=== PATIENT | female | born 1995 | race Hispanic/Latino ===

== ENCOUNTER 2018-03-03 13:38 | Outpatient (CLI) | payer OTHER | END 2018-03-03 13:39 | disposition home or self-care (01) | LOC: BICULT 13:38 | PROVIDERS: ATTEND Family Medicine | DX: R31.9 Hematuria, unspecified (principal) | CPT/HCPCS: 76770 ==

== ENCOUNTER 2019-01-28 11:47 | Emergency (ER) | payer OTHER ==
[2019-01-28 12:24] LABS: Bilirubin Negative (Negative); Blood, Urine Small (Negative); Clarity CLEAR (Clear); Glucose, Urine (Dipstick) Negative (Negative); Leukocyte Negative (Negative); Nitrite Negative (Negative); Protein, Urine (Dipstick) Trace mg/dL (Neg-Trace); Specific Gravity, Urine 1.028 (1.002-1.036); Urobilinogen 0.2 mg/dL (0.2-1.0)
[2019-01-28 12:26] LABS: Bacteria/HPF None Seen HPF (None Seen); Hyaline Casts/LPF 4-6 HYALINE CAST LPF (0-3 Hyaline); Pathc Cast-AUWi Flag 1.76 (0-2.49); Pregnancy Test - Urine (BHCG) POSITIVE (Negative); Pregu Control Background? CLEAR/WHITE (CLR/WHITE); Pregu Control Bar Appear? YES (CONTROL BAR); Specific Gravity 1.028 (1.002-1.036); Squamous Epithelial 0-3 HPF (0-3); WBC/HPF 0-3 HPF (0-3)
[2019-01-28 12:35] LABS: #Basophils 0.1 thou/uL (0.0-0.2); #Eosinphils 0.2 thou/uL (0.0-0.7); #Lymphocytes 1.7 thou/uL (1.20-3.40); #Monocytes 0.9 thou/uL (0.11-0.59); #Neutrophils 7.1 thou/uL (1.40-6.50); %Basophils 0.7 % (0.0-1.0); %Eosinophils 1.6 % (0.0-10.0); %Monocytes 9.3 % (0.0-10.0); %Neutrophils 71.5 % (42.0-75.0); Hemoglobin 12.8 g/dL (12.0-16.0); Mean Corpuscular HGB CONC 32.1 g/dL (32.0-36.0); Mean Corpuscular Hemoglobin 28.3 pg (27.0-31.0); Mean Corpuscular Volume 88.4 fL (78.0-98.0); Mean Platelet Volume 9.4 fL (7.4-10.4); Platelet Count 194 thou/uL (130-400); Red Blood Cell (RBC) Count 4.52 mill/uL (4.20-5.40)
[2019-01-28 12:56] LABS: ALT (SGPT) 10 U/L (8-55); AST (SGOT) 14 U/L (5-34); Albumin 3.9 g/dL (3.5-5.0); Alkaline Phosphatase 68 U/L (40-150); Anion Gap 12 mmol/L (10-20); BUN (Urea Nitrogen) 5 mg/dL (7.0-18.7); Bilirubin, Total 0.2 mg/dL (0.2-1.2); Calc. Creatinine Clearance 0 mL/min (70-130); Calcium 9.5 mg/dL (7.8-10.44); Carbon Dioxide 26 mmol/L (22-29); Chloride 103 mmol/L (98-107); Estimated GFR-MDRD Greater than 90; Globulin 2.8 g/dL (2.4-3.5); Glucose 85 mg/dL (70-105); Lipase 40 U/L (8-78); Potassium 4.7 mmol/L (3.5-5.1); Protein, Total 6.7 g/dL (6.0-8.3); Sodium 136 mmol/L (136-145)
--- NOTE | 2019-01-28 13:50 | ULT ---
PELVIC ULTRASOUND: HISTORY: female with abdominal pain. TECHNIQUE: Multiplanar, anderson scale, and color Doppler images were obtained in a transabdominal and transvaginal pelvic ultrasound. Spectral analysis of the Doppler waveforms of the ovaries was performed. FINDINGS: There is a gestation sac within the uterus. This contains a pole and a yolk sac. [place]-rump l ength of the pole is 1.96 cm which estimates gestational age of 8 weeks 4 days. A heart rate is detected at 152 b.p.m. No free fluid is seen in the pelvis. The right ovary was seen and demonstrates normal internal flow. The left ovary cannot be visualized. IMPRESSION: Single live intrauterine with estimated age of 8 weeks 4 days. POS: [facility]
[2019-01-30 19:02] LABS: Chlamydia by PCR Not Detected (NotDetected); GC by PCR Not Detected (NotDetected)
== END 2019-01-28 15:23 | disposition home or self-care (01) ==
LOC: ERS 11:47
DX: O99.89 Other specified diseases and conditions complicating pregnancy, childbirth and the puerperium (principal); R10.84 Generalized abdominal pain; Z3A.08 8 weeks gestation of pregnancy
CPT/HCPCS: 36415; 76856; 80053; 81003; 81015; 81025; 83690; 84702; 85025; 87480; 87491; 87510; 87591; 87660

== ENCOUNTER 2020-11-26 13:08 | Outpatient (CLI) | payer OTHER ==
--- NOTE | 2020-11-26 13:43 | ULT ---
Neck ultrasound: 11/26/2020 HISTORY: Palpable abnormality within the right aspect of the neck TECHNIQUE: Multiplanar grayscale sonographic imaging of the neck obtained in the area of probable con cern. FINDINGS: The area of palpable concern within the right aspect of the neck corresponds to a right thy roid lesion and thus, the entirety of the thyroid gland was imaged. The thyroid isthmus is within normal limits, measuring 4 mm in AP dimension. The right lobe of the thyroid gland measures 2.6 x 5.7 x 2.2 cm and contains a solid dominant nodule measuring approximately 2.3 x 4.5 x 2.5 cm. The solid nodule is isoechoic and demonstrates no internal calcification. No left thyroid nodule is seen. The left lobe measures 1.6 x 5.0 x 1.8 cm. IMPRESSION:TI-RADS category 3-mildly suspicious. Given size of the thyroid nodule on the right measur ing greater than 2.5 cm, fine-needle aspiration is advised. CODE T
== END 2020-11-26 13:09 | disposition home or self-care (01) ==
LOC: BICULT 13:08
PROVIDERS: ATTEND Nurse Practitioner Family
DX: R22.1 Localized swelling, mass and lump, neck (principal); E04.1 Nontoxic single thyroid nodule
CPT/HCPCS: 76536